=== PATIENT | male | born 1965 | race Two or more races ===

== ENCOUNTER 2022-10-11 15:36 | Emergency (ER) | payer MEDICAID ==
[~2022-10-11] VITALS: Ht 180.3 cm; Wt 100.0 kg
[2022-10-11 16:28] VITALS: BP 136/86; PULSE 93; RESP 14; TEMP 98; O2SAT 98
[2022-10-11] MEDS ORDERED: AMPICILLIN & SULBACTAM SODIUM 3 GM in SODIUM CHL 0.9% 100 ML IV SCH (20:15)
[2022-10-11] MEDS ORDERED: TETANUS-DIPTH-ACEL PERTUSSIS 0.5ML SYR Tdap IM ONE (20:15)
[2022-10-11] MEDS ORDERED: NEOMYCIN-BACITRACIN-POLYM UNITDOSE PKG TOP OINT TOP ONE (20:15)
[2022-10-11 21:01] LABS: Basophils # (auto) 0 10 ^3/uL (0-0.2); Basophils % (auto) 0.4 % (0.0-2.0); Eosinophils # (auto) 0.2 10 ^3/uL (0-0.8); Eosinophils % (auto) 1.9 % (0.0-7.0); Hematocrit 47.9 % (41.0-53.0); Hemoglobin 16.3 g/dL (13.5-17.5); Lymphocytes % (auto) 20.8 % (10.0-50.0); Mean Corpuscular Hemoglobin 31.5 pg (28.0-32.0); Mean Corpuscular Volume 92.7 fL (80.0-100.0); Monocytes # (auto) 0.6 10 ^3/uL (0-1.3); Monocytes % (auto) 5.6 % (0.0-12.0); Neutrophils % (auto) 71.3 % (37.0-80.0); Nucleated Red Blood Cells % 0.1 %; Red Blood Cells 5.16 10^6/uL (4.5-5.90); Red Cell Distribution Width 13.4 % (11.8-14.3); White Blood Cell 9.8 10^3/uL (4.4-10.8)
[2022-10-11 21:19] LABS: Albumin 3.9 g/dL (3.4-5.0); Calcium 8.9 mg/dL (8.5-10.1); Potassium 3.5 mmol/L (3.5-5.1)
[2022-10-11 21:21] LABS: BUN/Creatinine Ratio 10.4 (10.0-20.0)
[2022-10-11 21:28] LABS: Bilirubin, Total 0.8 mg/dL (0.2-1.0); Total Protein 7.5 g/dL (6.4-8.2)
[2022-10-11] MEDS ORDERED: CLIN300C70 PO (22:29)
[2022-10-11] MEDS ORDERED: MUPI2OIN2 TOP (22:29)
== END 2022-10-11 23:50 | disposition home or self-care (01) ==
LOC: ER 15:36
DX: S61.011A Laceration without foreign body of right thumb without damage to nail, initial encounter (principal); L08.9 Local infection of the skin and subcutaneous tissue, unspecified; L03.011 Cellulitis of right finger; R73.09 Other abnormal glucose; W26.8XXA Contact with other sharp object(s), not elsewhere classified, initial encounter; Y93.89 Activity, other specified; Y92.69 Other specified industrial and construction area as the place of occurrence of the external cause; Y99.8 Other external cause status
CPT/HCPCS: 36415; 73130; 80053; 85025; 90471; 90715; 96365